=== PATIENT | male | born 1990 | race Caucasian/White ===

== ENCOUNTER 2018-06-19 19:03 | Emergency (ER) | payer BC ==
[~2018-06-19] VITALS: Ht 170.2 cm; Wt 77.1 kg
--- NOTE | 2018-06-19 19:15 | NUR ---
PT BIBSELF COMPLAING OF PALPITATIONS WITH WEAKNESS/DIZZINESS X 2 WEEKS. PT STATES "MY HEART JUST FEELS FUNNY, ITS BEEN GETTING WORSE THE PAST 3 DAYS." PT ALSO COMPLAINING OF NAUSEA AND FATIGUE, PT DENIES SOB. PT AAOX4, RESPIRATIONS EVEN AND UNLABORED. SKIN WARM AND INTACT. PT ON MONITOR
--- NOTE | 2018-06-19 19:25 | NUR ---
MD AT BEDSIDE FOR EVALUATION
[2018-06-19] MEDS ORDERED: IV NS 0.9% 1,000 ML BAG IV ONE (19:30)
[2018-06-19] MEDS ORDERED: ALPRAZOLAM 0.5 MG TABLET PO ONE (19:30)
--- NOTE | 2018-06-19 19:30 | NUR ---
IV INITIATED RIGHT AC 18G. LABS DRAWN FROM SITE. IV PLACED ON SALINE LOCK, INTACT AND PATENT
--- NOTE | 2018-06-19 19:30 | NUR ---
URINE COLLECTED AND PICKED UP BY LAB
[2018-06-19 19:41] LABS: BASOPHILS # (AUTO) 0.1 /CMM (0.0-0.2); BASOPHILS % (AUTO) 0.8 % (0.0-2.0); EOSINOPHILS % (AUTO) 0.9 % (0.0-6.0); HEMATOCRIT 48 % (39-51); HEMOGLOBIN 16.8 g/dL (13.5-17.5); LYMPHOCYTES # (AUTO) 2.2 /CMM (0.8-4.8); LYMPHOCYTES % (AUTO) 25.9 % (20.0-44.0); MEAN CORPUSCULAR HGB CONC 35 g/dl (31.0-36.0); MEAN CORPUSCULAR VOLUME 92 fL (80-96); MONOCYTES # (AUTO) 0.6 /CMM (0.1-1.30); MONOCYTES % (AUTO) 6.8 % (2.0-12.0); NEUTROPHILS # (AUTO) 5.5 /CMM (1.8-8.9); NEUTROPHILS % (AUTO) 65.6 % (43.0-81.0); PLATELET COUNT (AUTO) 205 /CMM (150-450); RDW COEFFICIENT OF VARIATION 11.1 (11.5-15.0); RED BLOOD CELL COUNT(AUTO) 5.21 MIL/uL (4.5-6.0); WHITE BLOOD COUNT (AUTO) 8.5 K/uL (4.3-11.0)
[2018-06-19] MEDS ORDERED: ALPRAZOLAM 0.5 MG TABLET ONE (19:42)
--- NOTE | 2018-06-19 19:47 | NUR ---
PT REQUESTING TO HOLD XANAX FOR NOW, STATES HE MIGHT WANT IT LATER. AWARE.
[2018-06-19 19:57] LABS: ALANINE AMINOTRANSFERASE 26 U/L (12-78); ALBUMIN 4.9 g/dL (3.4-5.0); ALKALINE PHOSPHATASE 99 U/L (46-116); ASPARTATE AMINOTRANSFERASE 13 U/L (15-37); BILIRUBIN,DIRECT 0.1 mg/dL (0.0-0.2); BILIRUBIN,TOTAL 0.6 mg/dL (0.2-1.0); CALCIUM, SERUM 9.5 mg/dL (8.5-10.1); CARBON DIOXIDE 29 mmol/L (21-32); CHLORIDE 105 mmol/L (98-107); CREATININE 1.1 mg/dL (0.6-1.3); GLUCOSE 126 mg/dL (74-106); LIPASE 223 U/L (73-393); POTASSIUM 3.4 mmol/L (3.5-5.1); SODIUM SERUM 144 mmol/L (136-145); TOTAL PROTEIN, SERUM 8.1 g/dL (6.4-8.2); UREA NITROGEN, BLOOD 13 mg/dL (7-18)
[2018-06-19 19:59] LABS: TROPONIN I < 0.017 ng/mL (0.00-0.056)
--- NOTE | 2018-06-19 20:16 | NUR ---
Patient discharged to home in stable condition. Written and verbal after care instructions given. Patient verbalizes understanding of instruction. IV removed. Catheter intact and site benign. Pressure and 4x4 applied to site. No bleeding noted. Ambulatory with a steady gait
[2018-06-19 20:18] VITALS: BP 133/69
== END 2018-06-19 20:20 | disposition home or self-care (01) ==
LOC: ER 19:12
DX: R42 Dizziness and giddiness (principal); F41.9 Anxiety disorder, unspecified
CPT/HCPCS: 36415; 80048; 80076; 83690; 84484; 85025; 93005; 96360; 99285; A4606; J7030; Z7610

== ENCOUNTER 2022-02-10 18:34 | Emergency (ER) | payer BC ==
[~2022-02-10] VITALS: Ht 165.1 cm; Wt 83.6 kg
--- NOTE | 2022-02-10 18:55 | NUR ---
BIBS FOR C/O MID-STERNAL CP 10 RADIATING TO LEFT ARM. C/O LEFT ARM NUMBNESS. 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 IN ROOM AIR AND DENIES SOB. RESPIRATION REGULAR AND UNLABORED. ATTACHED THE PATIENT TO THE MONITOR.
--- NOTE | 2022-02-10 19:10 | NUR ---
IC ESTBLIHASED L AC 20G. LABS DRAWN AND COLLECTED AND SENT
[2022-02-10 19:46] LABS: CALCIUM, SERUM 9.7 mg/dL (8.5-10.1); CARBON DIOXIDE 30 mmol/L (21-32); CHLORIDE 102 mmol/L (98-107); CREATININE 1.2 mg/dL (0.6-1.3); GLUCOSE 100 mg/dL (74-106); POTASSIUM 3.5 mmol/L (3.5-5.1); SODIUM SERUM 138 mmol/L (136-145); UREA NITROGEN, BLOOD 19 mg/dL (7-18)
[2022-02-10 19:55] LABS: BASOPHILS % (AUTO) 0.4 % (0.0-2.0); EOSINOPHILS % (AUTO) 0.8 % (0.0-6.0); HEMATOCRIT 48 % (39-51); HEMOGLOBIN 16.7 g/dL (13.5-17.5); LYMPHOCYTES # (AUTO) 2.7 K/uL (0.8-4.8); LYMPHOCYTES % (AUTO) 26.1 % (20.0-44.0); MEAN CORPUSCULAR HGB CONC 35 g/dl (31.0-36.0); MEAN CORPUSCULAR VOLUME 92 fL (80-96); MONOCYTES # (AUTO) 0.7 K/uL (0.1-1.30); NEUTROPHILS # (AUTO) 6.8 K/uL (1.8-8.9); NEUTROPHILS % (AUTO) 65.7 % (43.0-81.0); PLATELET COUNT (AUTO) 220 K/uL (150-450); RED BLOOD CELL COUNT(AUTO) 5.17 MIL/uL (4.5-6.0); WHITE BLOOD COUNT (AUTO) 10.4 K/uL (4.3-11.0)
--- NOTE | 2022-02-10 21:30 | NUR ---
LAB AT BEDSIDE
--- NOTE | 2022-02-10 22:46 | NUR ---
Patient is medically stable for d.c per Dr Davis. IV removed. Catheter intact and site benign. Pressure and 4x4 applied to site. No bleeding noted.Patient discharged to home in stable condition. Written and verbal after care instructions given. Patient verbalizes understanding of instruction.
[2022-02-10 22:48] VITALS: BP 141/80
== END 2022-02-10 22:49 | disposition home or self-care (01) ==
LOC: ER 18:34
DX: R07.89 Other chest pain (principal)
CPT/HCPCS: 36415; 71045-TC; 80048-TC; 83880; 84484-TC; 85025-TC